=== PATIENT | male | born 1935 | race Caucasian/White ===

== ENCOUNTER 2017-04-14 09:56 | Inpatient (IN) ==
[2017-04-14] MEDS ORDERED: LASIX IV ONE (10:29)
--- NOTE | 2017-04-14 10:34 | EKG Report ---
Test Performed on : 04/14/2017 10:17:13 AM Test Reason : tachy Blood Pressure : / mmHG Vent. Rate : 141 BPM Atrial Rate : 070 BPM P-R Int : 000 ms QRS Dur : 124 ms QT Int : 350 ms P-R-T Axes : 000 -61 203 degrees QTc Int : 536 ms Wide QRS tachycardia. Left axis deviation Nonspecific intraventricular conduction delay ST \T\ T wave abnormality, consider inferolateral ischemia Abnormal ECG When compared with ECG of 24-FEB-2017 23:01, Wide QRS tachycardia. has replaced Sinus rhythm. Vent. rate has increased BY 57 BPM Unconfirmed Result
--- NOTE | 2017-04-14 10:43 | Diag Imaging Result Doc PS360 ---
EXAM: CHEST-PORTABLE HISTORY: sob/cp TECHNIQUE: Erect AP portable at 1026 COMMENT: There is cardiomegaly. There are small pleural effusions as there were on 02/24/2017. There is mild interstitial pulmonary edema which is worse than on the previous study. The mass which was previously demonstrated in the left lower lobe is apparently decreased in size. IMPRESSION: Interstitial pulmonary edema. Electronically signed by Dave Trevino 04/14/2017 10:40 AM
[2017-04-14 10:44] LABS: BASO% 0.4 % (0.0-0.8); EOS# 0.03 X1000 (0.0-0.7); EOS% 0.4 % (0.0-10.0); HEMATOCRIT 37.7 % (42.0-52.0); IMM GRAN# 0.03 X1000 (0.0-0.04); IMM GRAN% 0.4 % (0.0-0.5); LYMPH# 0.37 X1000 (1.2-3.4); LYMPH% 4.9 % (20.5-51.1); MANUAL DIFF NEEDED? NO; MCH 25.1 PG (27-31); MCHC 29.2 g/dL (33-37); MCV 86.1 FL (81-99); MONO# 0.62 X1000 (0.11-0.59); MONO% 8.2 % (1.7-9.3); NEUT% 85.7 % (42.2-75.2); PLT 201 X1000 (130-400); RBC 4.38 XMIL (4.7-6.1)
[2017-04-14 11:09] LABS: INR 1.21 (0.86-1.15); PROTIME 15.6 Seconds (12.1-15.5)
[2017-04-14 11:10] LABS: PTT PL 35.4 Seconds (22.6-43.9)
[2017-04-14 11:11] LABS: ALBUMIN 3.3 g/dL (3.5-5.0); CALCIUM 8.5 mg/dL (8.8-10.2); MAGNESIUM 2.8 mg/dL (1.5-2.7); POTASSIUM 4.7 mmol/L (3.5-5.1); TOTAL BILIRUBIN 0.8 mg/dL (0.20-1.00); TOTAL PROTEIN 8.8 g/dL (6.3-8.3)
[2017-04-14] MEDS ORDERED: TYLENOL PO PRN (12:27)
[2017-04-14] MEDS ORDERED: TORADOL IV PRN (12:27)
[2017-04-14] MEDS ORDERED: ZOFRAN IV PRN (12:27)
--- NOTE | 2017-04-14 12:32 | PROVIDER DOCUMENTATION ---
This chart was entered by Jessee Dunbar Scribleni, acting as scribe for Otto Mark MD. HPI-Respiratory General - General Chief Complaint: Shortness of Breath Stated Complaint: FEET SWELLING/KIDNEY FAILURE STAGE 4 Time Seen by Provider: 04/14/17 10:19 Source: patient, family Allergies/Adverse Reactions: Patient Allergies Allergy/AdvReac Type Severity Reaction Status Date / Time No Known Allergies Allergy Verified 04/14/17 10:05 Home Medications: Home Medication List Medication Instructions Recorded Confirmed Last Taken Type Aspirin/Calcium Carbonate/Mag 325 mg PO DAILY 05/31/13 04/14/17 1 Week Ago History [Aspirin Buffered 325 mg Tab] Nitroglycerin [Nitrostat] 0.4 mg SL PRN PRN 05/31/13 04/14/17 1 Month Ago History [place]-3 Fatty Acids/Fish Oil [Fish 1 each PO DAILY 05/31/13 04/14/17 12/24/16 History Oil 1,000 mg Softgel] PRAVAstatin [Pravachol] 40 mg PO DAILY 05/31/13 04/14/17 12/24/16 History Furosemide [Lasix] 1 tab PO EVERY OTHER DAY 12/25/16 04/14/17 12/24/16 History Albuterol Sulfate [Proair Hfa] 8.5 gm IH Q4-6H PRN PRN #1 02/24/17 04/14/17 Unknown Rx hfa.[email or web address].[email or web address] - History of Present Illness-Resp Nature of Presenting Problem: Patient is a 81 y/o M that presents with his family to the ER with shortness of breath, bilateral lower extremity swelling, and difficulty urinating. Symptoms began yesterday although his shortness of breath is about to his normal( history of COPD and LUNG CA). Denies chest pain, fever/chills, or n/v/d. 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 He just finished radiation for Lung CA 4 weeks ago. Quality of Pain: reports: none Severity in ED: reports: moderate, severe Onset/Duration: reports: unsure, 24 hours ago, 2 days ago Timing: reports: still present, constant Context: denies: recent chemotherapy, recent URI Cough Quality/Degree: reports: no cough Modifying Factors: improves with: nothing Associated Symptoms: reports: shortness of breath, sore throat. denies: cough, fever/chills, hurts to breathe, hyperventilating, nasal congestion, nasal drainage, wheezing Similar Symptoms Previously?: Yes Recently seen or treated by another doctor?: No Review of Systems - Adult - REVIEW OF SYSTEMS - ADULT Constitutional: denies: chills, fever Eyes: reports: no symptoms reported Ears, Nose, Mouth & Throat: reports: no symptoms reported Cardiovascular: reports: edema. denies: chest pain, palpitations, syncope Respiratory: reports: shortness of breath. denies: cough, wheezing Gastrointestinal: denies: abdominal pain, diarrhea, nausea, vomiting Genitourinary: reports: urinary retention. denies: dysuria, hematuria Musculoskeletal: denies: back pain, joint pain, neck pain Integumentary: reports: no symptoms reported Neurological: denies: dizziness/vertigo, headache/migraines, paresthesia, syncope Psychiatric: reports: no symptoms reported Endocrine: reports: no symptoms reported Hematologic/Lymphatic: reports: no symptoms reported Allergic/Immunologic: reports: no symptoms reported All Other Systems: Reviewed and Negative Past History - Adult - PAST MEDICAL HISTORY-ADULT Review of Records: reports: Old Records Reviewed, Nursing Assessment Review, Medications Reviewed Cardiovascular: reports: angina, CAD, HTN Respiratory: reports: COPD, cancer (lung) Genitourinary: reports: kidney disease (Stage IV) - PRIOR SURGERIES/PROCEDURES Surgical/Procedure History: reports: CABG - IMMUNIZATION STATUS Childhood Immunizations: See Nurse Assessment Flu Vaccine: See Nurse Assessment - FAMILY HISTORY Family History: reviewed, not pertinent - SOCIAL HISTORY Smoking: quit greater than 1 year, cigarettes Living Situation: family Physical Exam-General - PHYSICAL EXAM-ADULT Initial Vital Signs Reviewed: Yes - CONSTITUTIONAL General Appearance: alert, mild distress - EYES Eyes: PERRL/EOMI, pink conjunctivae - HEAD, EARS, NOSE, MOUTH & THROAT HENMT: normocephalic/atraumatic, moist mucous membranes, normal ENT inspection - NECK Neck: full range of motion, normal inspection - RESPIRATORY Respiratory: lungs clear, normal breath sounds, no respiratory distress, no accessory muscle use - CARDIOVASCULAR Cardiovascular: no gallop, tachycardia - GASTROINTESTINAL (ABDOMEN) Abdominal Exam: normal bowel sounds, non tender, soft, no organomegaly, no pulsatile mass - MUSCULOSKELETAL Extremity: no calf tenderness, pelvis stable, pedal edema (2 to 3 plus bilaterally lower extremity) - SKIN Integumentary: normal color, warm/dry - NEUROLOGIC Neurologic: grossly normal, no motor/sensory deficits - PSYCHIATRIC Psych/Mental Status: normal mood/affect, normal thought content, normal thought process, oriented x 3 Progress - PLAN OF CARE/RESULTS Progress/Plan/Lab Results: Vital Signs - 8 hr 04/14/17 10:03 Temperature 97.6 F Pulse Rate 140 H Respiratory Rate 24 Blood Pressure 117/83 O2 Sat by Pulse Oximetry 99 Laboratory Results - last 24 hr 04/14/17 04/14/17 04/14/17 10:16 10:16 10:16 WBC RBC Hgb Hct MCV MCH MCHC RDW Std Deviation Plt Count MPV Immature Gran % (Auto) Neut % (Auto) Lymph % (Auto) Foster % (Auto) Eos % (Auto) Baso % (Auto) Immature Gran # (Auto) Neut # (Auto) Lymph # (Auto) Foster # (Auto) Eos # (Auto) Baso # (Auto) PT INR APTT (Factor Assay) Sodium 137 Potassium 4.7 Chloride 96 L Carbon Dioxide 25 Anion Gap 16 BUN 50 H Creatinine 3.9 H Estimated GFR/1.73 m2 15 BUN/Creatinine Ratio 13 Glucose 218 H Calculated Osmolality 294 Calcium 8.5 L Magnesium 2.8 H Total Bilirubin 0.80 AST 173 H ALT 104 H Alkaline Phosphatase 188 H Creatine Kinase 34 Troponin T 0.216 H [id number]-[id number] Pept > 54482 H Total Protein 8.8 H Albumin 3.3 L Globulin 6.0 Albumin/Globulin Ratio 1.0 04/14/17 04/14/17 10:16 10:16 WBC 7.54 RBC 4.38 L Hgb 11.0 L Hct 37.7 L MCV 86.1 MCH 25.1 L MCHC 29.2 L RDW Std Deviation 17.1 H Plt Count 201 MPV 10.0 Immature Gran % (Auto) 0.4 Neut % (Auto) 85.7 H Lymph % (Auto) 4.9 L Foster % (Auto) 8.2 Eos % (Auto) 0.4 Baso % (Auto) 0.4 Immature Gran # (Auto) 0.03 Neut # (Auto) 6.46 Lymph # (Auto) 0.37 L Foster # (Auto) 0.62 H Eos # (Auto) 0.03 Baso # (Auto) 0.03 PT 15.6 H INR 1.21 H APTT (Factor Assay) 35.4 Sodium Potassium Chloride Carbon Dioxide Anion Gap BUN Creatinine Estimated GFR/1.73 m2 BUN/Creatinine Ratio Glucose Calculated Osmolality Calcium Magnesium Total Bilirubin AST ALT Alkaline Phosphatase Creatine Kinase Troponin T Plf-V-Iiesqumbgoe Pept Total Protein Albumin Globulin Albumin/Globulin Ratio Orders Category Date Time Status Cardiac Monitoring DIRECTED Care 04/14/17 10:27 Active Rosas Cath Insertion ORDERED Care 04/14/17 10:30 Active Oxygen Therapy- ED Nursing DIRECTED Care 04/14/17 10:27 Active Post Void Residual DIRECTED Care 04/14/17 10:30 Active Saline Loc NOW Care 04/14/17 10:27 Active CHEST-PORTABLE [RAD] Stat Exams 04/14/17 10:29 Completed CBC WITH ELECTRONIC DIFF [HEME] Stat Lab 04/14/17 10:16 Completed CK PROFILE [SP CHEM] Stat Lab 04/14/17 10:16 Completed COMPREHENSIVE METABOLIC PANEL [CHEM] Stat Lab 04/14/17 10:16 Completed MAGNESIUM [CHEM] Stat Lab 04/14/17 10:16 Completed PRO B-NATRIURETIC PEPTIDE Stat Lab 04/14/17 10:16 Completed [address]IME WITH INR PL [COAG] Stat Lab 04/14/17 10:[address] [COAG] Stat Lab 04/14/17 10:16 Completed TROPONIN T Stat Lab 04/14/17 10:16 Completed Furosemide [Lasix] Med 04/14/17 10:29 Discontinued 40 mg IV NOW ONE EKG [EKG] Stat Ther 04/14/17 10:08 Draft EKG [EKG] Stat Ther 04/14/17 10:27 Ordered Result Diagrams: 04/14/17 10:16 04/14/17 10:16 - EKG 1 Time of EKG reading by physician:: 10:18 EKG Read and Signed by:: Otto Mark EKG Interpretation (*Must complete 3 of following elements*): Abnormal Rate: 141 Rhythm: Wide QRS tachycardia Bath: left ST Wave: non-specific ST changes - XRAY 1 XRAY Study: Chest Impression: Abnormal XRAY Interpretation: interstitial pulmonary edema - CONSULTS/PCP/HOSPITALIST Notification #1 *Consult/PCP/Hospitalist*: consumer advocate for hospitalist Time Discussed: 12:25 Consult Disposition: Admit Departure - Departure Date of Disposition Decision: 04/14/17 Time of Disposition Decision: 12:28 DIAGNOSIS: Heart failure, CKD (chronic kidney disease), Dyspnea Disposition: ADMITTED INPATIENT 09 Certified Medical Emergency: Emergent Condition: Stable Referrals and Follow-Ups: Shamar Doan MD [Primary Care Provider] - - Critical Care Note This patient required my direct & personal management of CC.: No This chart was documented by the indicated scribe, (Jessee Dunbar, Scribe) and accurately reflects the services I performed and decisions made by me, Otto Mark MD, as attested by the provider's signature.
[2017-04-14] MEDS ORDERED: CARDIZEM IV ONE (14:24)
[2017-04-14] MEDS ORDERED: NITROGLYCERIN SL PRN (14:25)
--- NOTE | 2017-04-14 17:27 | HISTORY AND PHYSICAL ---
PRIMARY CARE PHYSICIAN: Dr. Shamar Doan. CHIEF COMPLAINT: Increased shortness of breath that has progressively worsened over the past couple of days and bilateral lower extremity edema. HISTORY OF PRESENTING ILLNESS: This is an 81-year-old male who presented to [facility] ER with complaints of increased shortness of breath and bilateral lower extremity edema that has progressively worsened over the past several days. On arrival to the emergency room. He was noted to have a BUN of 50 with a creatinine of 3.9, with known chronic kidney disease stage 4 without dialysis. He had a magnesium of 2.8. His liver enzymes are elevated with an AST of 173, ALT 104, alkaline phosphatase of 188. He had a troponin of 0.216. I think that is most likely elevated due to his kidney function as he denies any chest pain, but he does have a proBNP of greater than 35,000. Chest x-ray showed interstitial pulmonary edema. He had an EKG that showed 141 rate with a wide QRS tachycardia. He continues to remain tachycardic at 143-148 currently, is saturating 100% on 2 L via nasal cannula and is being admitted to the medical unit for further evaluation and treatment. PAST MEDICAL HISTORY: Lung cancer, finished his last radiation with Dr. Alvarenga 4 weeks ago, coronary artery disease, ischemic cardiomyopathy, hypertension, dyslipidemia, chronic kidney disease stage 4 and COPD. PAST SURGICAL HISTORY: CABG. FAMILY HISTORY: Noncontributory. SOCIAL HISTORY: Currently lives with family. Denies any tobacco use stating he quit 6 years ago and denies any alcohol or illicit drug use. ALLERGIES: He does not have any allergies. HOME MEDICATIONS: We will hold his Lasix 40 mg 1 p.o. every other day. We will continue his ProAir 1 inhalation q.4-6 hours p.r.n., a buffered aspirin 325 mg p.o. daily, Nitrostat 0.4 mg sublingually p.r.n., fish oil 1000 mg p.o. daily and Pravachol 40 mg p.o. daily. LABORATORY DATA: Showed a white blood cell count of 7.54, hemoglobin of 11, hematocrit 37.7, platelets 201,000. PT and INR of 15.6 and 1.21. A sodium of 137, potassium 4.7, chloride 96, CO2 25, BUN of 50, creatinine 3.9, glucose 218, magnesium 2.8, AST of 173, ALT 104, alkaline phosphatase 188. Troponin 0.216. ProBNP of greater than 35,000. EKG with a wide QRS tachycardia at 141. Chest x-ray showed interstitial pulmonary edema. REVIEW OF SYSTEMS: He denied any fever, chills, blurred vision, dizziness, chest pain. Mild cough, nonproductive, shortness of breath. Denied any abdominal pain, constipation, diarrhea, burning or hurting with urination and is positive for lower extremity swelling. PHYSICAL EXAMINATION: VITAL SIGNS: On arrival he had a temperature of 97.6 degrees, a pulse of 140, respirations 24, blood pressure 117/83, saturating 99% on 2 L via nasal cannula. GENERAL: This is an 81-year-old male who is lying in the bed and answers questions appropriately. HEENT: Normocephalic and atraumatic. Pupils are equal, round, and reactive to light. Extraocular movements are intact. Oropharynx and nares are clear. NECK: Supple. LUNGS: Clear to auscultation with equal lung expansion and chest wall movement. O2 via nasal cannula currently in use. HEART: With an irregular rate and rhythm. Tachycardia in low 140s to 148. No murmurs, rubs or gallops. ABDOMEN: Soft, nontender, nondistended. Bowel sounds are present x4 quadrants. EXTREMITIES: No clubbing or cyanosis. He is noted to have 2 to 3+ bilateral lower extremity edema. NEUROLOGICAL: The cranial nerves 2-12 are grossly intact. ASSESSMENT: 1. An acute congestive heart failure exacerbation. 2. Tachycardia. 3. Elevated liver function tests. 4. Chronic kidney disease stage 4. PLAN: He has been admitted to the medical unit. Placed on telemetry. Rosas catheter indwelling placed. Healthy heart diet. We are going to give him a 10 mg IV Cardizem x1 now. If this does not bring his heart rate down then will have to look at putting him in the unit on a Cardizem drip to get his heart rate less than 100. Once his heart rate is normalized will obtain an echocardiogram in the a.m. We will do serial cardiac enzymes today x3 sets and a CBC, CMP in the a.m. Continue home medications as previously identified and place on Lasix 40 mg IV q.12 and daily weights. The patient is a full code. Dictated by EN Lake for Tr Crystal MD cc: MD Tr Jon MD
[2017-04-14] MEDS: CARDIZEM 100 MG/NS 100 MG/100 ML IVPB IV SCH ×2 (17:53→22:33)
[2017-04-14 21:29] LABS: URINE SOURCE CATH
[2017-04-14] MEDS: PRAVACHOL PO SCH (21:31)
[2017-04-14 21:34] LABS: BILIRUBIN URINE NEGATIVE (NEGATIVE); BLOOD URINE 4+ (NEGATIVE); CLARITY VERY CLOUDY (CLEAR); COLOR RED; LEUKOCYTES URINE 2+ (NEGATIVE); NITRITE URINE NEGATIVE (NEGATIVE); PROTEIN URINE 2+(100 mg/dL) mg/dL (NEGATIVE); SP GRAVITY URINE 1.015; URINE MICROSCOPIC NEEDED? YES; UROBILINOGEN URINE NORMAL
[2017-04-14 21:50] LABS: URINE EPITHELIAL CELLS <10 /HPF (<10); URINE RBC TNTC /HPF (<10)
[2017-04-14] MEDS ORDERED: LASIX IV SCH (22:30)
--- NOTE | 2017-04-15 05:06 | EKG Report ---
Test Performed on : 04/14/2017 6:27:56 PM Test Reason : rhythm change/afib Blood Pressure : / mmHG Vent. Rate : 100 BPM Atrial Rate : 100 BPM P-R Int : 000 ms QRS Dur : 106 ms QT Int : 326 ms P-R-T Axes : 000 -45 216 degrees QTc Int : 420 ms Undetermined rhythm ramandeep Left axis deviation ST \T\ T wave abnormality, consider inferolateral ischemia Abnormal ECG When compared with ECG of 14-APR-2017 10:17, (Unconfirmed) Current undetermined rhythm precludes rhythm comparison, needs review Confirmed by Larry Brothers MD ([id number]) on 05/12/2017 6:44:08 PM
--- NOTE | 2017-04-15 05:07 | EKG Report ---
Test Performed on : 04/15/2017 02:58:24 AM Test Reason : CHEST PAIN Blood Pressure : / mmHG Vent. Rate : 128 BPM Atrial Rate : 293 BPM P-R Int : 000 ms QRS Dur : 110 ms QT Int : 320 ms P-R-T Axes : -78 -52 188 degrees QTc Int : 467 ms Atrial flutter. with variable AV block. Left anterior fascicular block Marked ST abnormality, possible inferior subendocardial injury Abnormal ECG When compared with ECG of 14-APR-2017 18:27, (Unconfirmed) Previous ECG has undetermined rhythm, needs review ST now depressed in Inferior leads Confirmed by Larry Brothers MD ([id number]) on 05/12/2017 6:43:25 PM
[2017-04-15] MEDS: CARDIZEM 100 MG/NS 100 MG/100 ML IVPB IV SCH ×2 (06:28→20:30)
[2017-04-15 06:46] LABS: MANUAL DIFF NEEDED? NO
[2017-04-15 07:09] LABS: BASO% 0.2 % (0.0-0.8); EOS# 0.03 X1000 (0.0-0.7); EOS% 0.3 % (0.0-10.0); HEMATOCRIT 35.2 % (42.0-52.0); HEMOGLOBIN 10.5 g/dL (14.0-18.0); IMM GRAN# 0.04 X1000 (0.0-0.04); IMM GRAN% 0.4 % (0.0-0.5); LYMPH# 0.49 X1000 (1.2-3.4); LYMPH% 4.3 % (20.5-51.1); MCH 24.8 PG (27-31); MCHC 29.8 g/dL (33-37); MCV 83.2 FL (81-99); MONO# 1.21 X1000 (0.11-0.59); MONO% 10.6 % (1.7-9.3); MPV 10.3 FL (7.4-10.4); NEUT% 84.2 % (42.2-75.2); PLT 196 X1000 (130-400); RBC 4.23 XMIL (4.7-6.1)
[2017-04-15 07:53] LABS: ALBUMIN 2.8 g/dL (3.5-5.0); CALCIUM 8.4 mg/dL (8.8-10.2); POTASSIUM 5.3 mmol/L (3.5-5.1); TOTAL BILIRUBIN 1.2 mg/dL (0.20-1.00); TOTAL PROTEIN 8.3 g/dL (6.3-8.3)
[2017-04-15] MEDS: VENTOLIN HFA INH PRN ×2 (08:24→19:25)
[2017-04-15] MEDS: ROCEPHIN 1 GM/NS 1 GM/50 ML IVPB IV SCH (08:27)
[2017-04-15] MEDS: FISH OIL CONCENTRATE PO SCH (08:27)
[2017-04-15] MEDS: ASPIRIN EC PO SCH (08:27)
--- NOTE | 2017-04-15 08:43 | PROGRESS NOTE ---
DATE: 04/15/2017 SUBJECTIVE: The patient notes that he is breathing a little bit easier. Denies any chest pain or palpitations. Denies any fevers or chills. PHYSICAL EXAMINATION: Vital Signs: Temperature 97, pulse 82, respiratory rate 28, BP 97/67, saturation is 94% on 2 L. General: The patient is awake and alert. He is currently in no respiratory distress. He is much improved. HEENT: Normocephalic. Neck: Supple. CV: Rate controlled. Heart rate was 150s last night on a Cardizem drip at 20. Currently, he is rate controlled on 10 of Cardizem with a rate of 82. Chest: Clear. Abdomen: Soft. Extremities: Moves all extremities. Neurologic: No changes. LABS: Hemoglobin and hematocrit 10 and 30. Potassium 5.3, BUN 58, creatinine 4.4, glucose 152. AST 582, ALT 410, albumin 2.8. ASSESSMENT: 1. Atrial fibrillation with rapid ventricular response, improved. 2. Acute pulmonary edema secondary to atrial fibrillation. The patient has no previous history of congestive heart failure. We will check an echocardiogram. 3. Acute on chronic renal failure. Creatinine continues to climb slightly. His baseline is 2.8. He is currently at 4.4. 4. Acute hepatitis, likely secondary to liver congestion. His ALT and AST have risen. 5. Moderate protein calorie malnutrition. PLAN: We will check an echocardiogram. We will consult Cardiology. Recheck his labs in the a.m. We will stop his Lasix currently as he appears to be volume depleted. We will discuss this with Cardiology. Further orders as needed. cc: Tr Crystal MD
--- NOTE | 2017-04-15 15:25 | ECHO REPORT ---
ORDER DATE: 04/15/2017 INDICATION: CHF exacerbation. FINDINGS: 1. The right atrium is likely severely enlarged with a dimension of 5.6 cm. 2. Mild tricuspid regurgitation. RV systolic pressure of 56 suggesting pulmonary hypertension. 3. The right ventricle was enlarged with at least moderate reduction in RV systolic function. 4. Trace pulmonic insufficiency. 5. Likely severe left atrial enlargement with a dimension of 5.2 cm. 6. No mitral prolapse. There appears to be apical tenting of the mitral leaflets. There is a moderate to severe mitral regurgitation. 7. Left ventricle was dilated with a dimension of 6.6 cm. Mild left ventricular hypertrophy with a posterior and interventricular septal wall thickness of 1.2 cm each. Severe reduction in LV systolic function with an estimated EF of 15%. There is no clear evidence of LV thrombus. 8. Aortic valve opens well. Does appear to be somewhat sclerotic. There is mild aortic insufficiency. 9. Aorta appears normal in visualized segments. 10. No pericardial effusion seen. cc: MD Alejandra Nava CRNP
[2017-04-15] MEDS ORDERED: NITROGLYCERIN TOP SCH (16:00)
[2017-04-15] MEDS ORDERED: LASIX IV SCH (16:00)
[2017-04-15] MEDS: ZOFRAN IV PRN (16:17)
[2017-04-15] MEDS: APRESOLINE PO SCH (16:17)
[2017-04-15] MEDS: LOVENOX SUBQ SCH (16:17)
--- NOTE | 2017-04-15 16:26 | CONSULTATION ---
DATE OF CONSULTATION: 04/15/2017 IMPRESSION: 1. Acute on chronic biventricular congestive heart failure with significant right-sided congestive heart failure component and associated deterioration of renal function due to lower cardiac output as well as evidence of hepatic congestion. 2. Severe ischemic cardiomyopathy. 3. Moderate to severe mitral regurgitation. 4. Atrial flutter, duration not known. 5. Atherosclerotic coronary disease with history of previous coronary bypass grafting six years ago at [facility] by Dr. Campoverde. 6. Non-small cell lung cancer left lower lobe. Patient is status post radiation therapy. 7. Significant chronic obstructive pulmonary disease. 8. Acute on chronic renal dysfunction. RECOMMENDATIONS: 1. Continue intravenous diltiazem for initial measure for heart rate control. 2. Add low-dose beta georgette and increase as tolerated. 3. Consider transition to oral Cardizem. 4. Diurese with intravenous Lasix. This should help his right ventricular performance as her diureses and in turn probably will improve renal perfusion. 5. Add hydralazine and increase as tolerated. 6. Add nitrates. 7. Cautious administration of Lovenox given significant renal dysfunction. HISTORY: This 81-year-old, white male, with past history of chronic systolic heart failure, ischemic cardiomyopathy, COPD, non-small cell lung cancer, and chronic kidney disease was admitted with progressive dyspnea symptoms and significant edema. He has had progressive dyspnea symptoms for several months. More recently, he has had progression to experiencing orthopnea and then significant edema. He has had very little chest discomfort which he characterizes as a chest tightness. Episodes have been very brief and limited. He denies any palpitations. There has been no syncope. He was admitted to telemetry and initial efforts were made to diurese him because of congestive heart failure evident. His renal function was impaired and appeared to be deteriorating. He also had atrial flutter and rate control became difficult prompting initiation of intravenous diltiazem and transfer to the intensive care unit. He had a stress myocardial perfusion study this past January which showed a fixed defect in the mid to distal anterior wall, and apex and left ventricular ejection fraction of 30%. PAST MEDICAL HISTORY: 1. Atherosclerotic coronary disease with history of previous coronary bypass grafting 6 years ago. He has ischemic cardiomyopathy. More recently, diagnosed with left ejection fraction 30% by Nuclear Medicine study with fixed defect in the mid to apical anterior wall and apex consistent with infarction. 2. Significant chronic obstructive pulmonary disease. 3. Denies hypertension, diabetes mellitus and hypercholesterolemia. 4. Non-small cell lung cancer in the left lower lobe. Patient is status post radiation therapy to this region early this year. PAST SURGICAL HISTORY: Also includes bilateral cataract procedure. MEDICATIONS: Prior to admission as listed. ALLERGIES: He has known no known allergies. SOCIAL HISTORY: He is and has lived in [place] for more than 40 years. 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 After moving back here more than 40 years ago he worked in construction and installation of insulation. He smoked 1 pack of cigarettes per day for well over 40 years but no longer smokes cigarettes. He does not currently drink any alcoholic beverages. FAMILY HISTORY: Negative for premature coronary disease. REVIEW OF SYSTEMS: Pulmonary: Noteworthy for dyspnea as well as cough. There has been no purulent sputum. Gastrointestinal: Negative. Constitutional: Negative. Remainder of the review of systems negative/noncontributory with 14 total systems reviewed. PHYSICAL EXAMINATION: General: This is a pleasant, thin elderly white male in no distress. Heart rate 100 and irregular with ECG monitor showing atrial flutter. Blood pressure 125/80. HEENT: Extraocular movements appear intact. Mucous membranes are moist. Neck: Supple. Jugular distention is evident consistent with central venous pressure of 12 cm. waves can be appreciated. There are no carotid bruits. Chest: Auscultation of the chest reveals a few bibasilar inspiratory crackles. Cardiac Exam: Reveals an irregular rate and rhythm without appreciable murmur or gallop. Abdomen: Soft, nontender. Extremities: Demonstrate 2+ to 3+ low pretibial to ankle edema. Neurologic Exam: Reveals him to be alert, fully oriented. Speech is fluent. Moves all 4 extremities equally well. Skin: Warm dry. Psychiatric: Reveals mood to be appropriate. DIAGNOSTIC DATA: ECG demonstrates atrial flutter with variable AV block, left anterior fascicular block and ST abnormality, consider lateral ischemia. cc: Bradley Wong MD
[2017-04-15] MEDS ORDERED: LASIX IV ONE ×2 (19:05→20:56)
[2017-04-15] MEDS: PRAVACHOL PO SCH (20:30)
[2017-04-15] MEDS: LOPRESSOR PO SCH (20:30)
[2017-04-15] MEDS ORDERED: LASIX ONE (23:23)
[2017-04-15] MEDS: LEVOPHED 8 MG in D5 1/2 NS 250 ML IV SCH (23:35)
[2017-04-16] MEDS ORDERED: LASIX IV SCH (04:00)
--- NOTE | 2017-04-16 05:48 | EKG Report ---
Test Performed on : 04/16/2017 05:35:17 AM Test Reason : afib protocol Blood Pressure : / mmHG Vent. Rate : 096 BPM Atrial Rate : 234 BPM P-R Int : 000 ms QRS Dur : 134 ms QT Int : 440 ms P-R-T Axes : 000 -62 106 degrees QTc Int : 555 ms Atrial flutter. with variable AV block. with premature ventricular or aberrantly conducted complexes . Left axis deviation Left bundle branch block Abnormal ECG When compared with ECG of 15-APR-2017 02:58, (Unconfirmed) Left bundle branch block is now present Confirmed by Larry Brothers MD ([id number]) on 05/12/2017 6:42:58 PM
[2017-04-16 06:59] LABS: ALBUMIN 2.8 g/dL (3.5-5.0); CALCIUM 7.8 mg/dL (8.8-10.2); MAGNESIUM 3.2 mg/dL (1.5-2.7); POTASSIUM 5.3 mmol/L (3.5-5.1); TOTAL BILIRUBIN 1.2 mg/dL (0.20-1.00); TOTAL PROTEIN 8.3 g/dL (6.3-8.3)
[2017-04-16] MEDS: VENTOLIN HFA INH PRN ×2 (07:05→21:01)
[2017-04-16 07:11] LABS: HEMATOCRIT 34.9 % (42.0-52.0); HEMOGLOBIN 10.6 g/dL (14.0-18.0); MCH 25.3 PG (27-31); MCHC 30.4 g/dL (33-37); MCV 83.3 FL (81-99); MPV 10.8 FL (7.4-10.4); RBC 4.19 XMIL (4.7-6.1)
--- NOTE | 2017-04-16 08:06 | EKG Report ---
Test Performed on : 04/16/2017 07:02:50 AM Test Reason : rhythm change Blood Pressure : / mmHG Vent. Rate : 063 BPM Atrial Rate : 063 BPM P-R Int : 178 ms QRS Dur : 122 ms QT Int : 490 ms P-R-T Axes : 043 -56 205 degrees QTc Int : 501 ms Sinus rhythm. with premature atrial complexes. Possible Left atrial enlargement Left bundle branch block Abnormal ECG When compared with ECG of 16-APR-2017 05:35, (Unconfirmed) Sinus rhythm. has replaced Atrial flutter. Vent. rate has decreased BY 33 BPM T wave inversion more evident in Inferior leads T wave inversion now evident in Anterior leads Confirmed by Larry Brothers MD ([id number]) on 05/12/2017 6:42:51 PM
--- NOTE | 2017-04-16 08:13 | Diag Imaging Result Doc PS360 ---
CHEST-PORTABLE - 04/16/2017 INDICATION: HYPOXIA TECHNIQUE: COMPARISON: 04/14/2017 FINDINGS: Stable surgical changes to the heart. Stable significant cardiomegaly and pulmonary vascular congestion. There may be mild interstitial pulmonary edema as well. Stable patchy infiltrates in the midlungs bilaterally. There are probably small pleural effusions stable from prior. IMPRESSION: No change from prior. Electronically signed by Osvaldo Wynn 04/16/2017 8:11 AM
[2017-04-16] MEDS: ROCEPHIN 1 GM/NS 1 GM/50 ML IVPB IV SCH (08:47)
[2017-04-16] MEDS: ASPIRIN EC PO SCH (08:47)
[2017-04-16] MEDS: FISH OIL CONCENTRATE PO SCH (08:47)
[2017-04-16] MEDS: APRESOLINE PO SCH ×3 (08:57→17:26)
[2017-04-16] MEDS: LOPRESSOR PO SCH (08:57)
[2017-04-16] MEDS: ZOFRAN IV PRN (12:36)
[2017-04-16] MEDS: LEVOPHED 8 MG in D5 1/2 NS 250 ML IV SCH (15:12)
[2017-04-16] MEDS: DOBUTAMINE 250 MG/D5W 250 MG/250 ML IV.SOLN IV SCH (17:25)
[2017-04-16] MEDS: LOVENOX SUBQ SCH (17:26)
[2017-04-16] MEDS: DOPAMINE 800 MG/D5W (PARKWAY ONLY!) 800 MG/250 ML IV.SOLN IV SCH (17:26)
[2017-04-17] MEDS: VENTOLIN HFA INH PRN ×2 (02:08→19:49)
[2017-04-17] MEDS: DOBUTAMINE 250 MG/D5W 250 MG/250 ML IV.SOLN IV SCH ×3 (02:22→22:55)
--- NOTE | 2017-04-17 05:06 | EKG Report ---
Test Performed on : 04/17/2017 04:58:59 AM Test Reason : afib protocol Blood Pressure : / mmHG Vent. Rate : 077 BPM Atrial Rate : 077 BPM P-R Int : 172 ms QRS Dur : 114 ms QT Int : 442 ms P-R-T Axes : 037 -50 209 degrees QTc Int : 500 ms Poor data quality, interpretation may be adversely affected Normal sinus rhythm. Left anterior fascicular block ST \T\ T wave abnormality, consider lateral ischemia Prolonged QT Abnormal ECG When compared with ECG of 16-APR-2017 07:02, (Unconfirmed) premature atrial complexes. are no longer present Left bundle branch block is no longer present T wave inversion no longer evident in Anterior leads Unconfirmed Result
[2017-04-17 06:39] LABS: HEMATOCRIT 33.6 % (42.0-52.0); HEMOGLOBIN 10.2 g/dL (14.0-18.0); MCH 24.9 PG (27-31); MCHC 30.4 g/dL (33-37); MCV 82.2 FL (81-99); RBC 4.09 XMIL (4.7-6.1)
[2017-04-17 06:55] LABS: ALBUMIN 2.6 g/dL (3.5-5.0); CALCIUM 7.1 mg/dL (8.8-10.2); MAGNESIUM 3.1 mg/dL (1.5-2.7); POTASSIUM 4.8 mmol/L (3.5-5.1); TOTAL BILIRUBIN 0.8 mg/dL (0.20-1.00); TOTAL PROTEIN 7.7 g/dL (6.3-8.3)
[2017-04-17] MEDS: APRESOLINE PO SCH ×3 (08:12→15:59)
[2017-04-17] MEDS: ROCEPHIN 1 GM/NS 1 GM/50 ML IVPB IV SCH (08:29)
[2017-04-17] MEDS: ASPIRIN EC PO SCH (08:29)
[2017-04-17] MEDS: FISH OIL CONCENTRATE PO SCH (08:29)
[2017-04-17] MEDS: ZOFRAN IV PRN ×3 (08:29→22:55)
[2017-04-17] MEDS ORDERED: SAMSCA PO ONE (13:13)
--- NOTE | 2017-04-17 13:32 | PROGRESS NOTE ---
DATE: 04/17/2017 SUBJECTIVE: Mr. Srivastava is somewhat weak. He is able to respond to questions and answer appropriately and he has no complaints presently. PHYSICAL EXAMINATION: He is afebrile. Heart rate of 82. His systolic blood pressures seemed to be predominantly in the 80s to 90s. His I's and O's over the last 24 hours seem to be positive around 800 mL. General: He is in no acute distress. Cardiovascular: He is in a regular rate and rhythm. No murmurs. He has 1+ lower extremity edema with mildly cool distal extremities. He has no increased work of breathing. Abdomen: Soft, nontender, nondistended. No obvious organomegaly. Notably his JVP does appear to be elevated up to the angle of the jaw at a roughly 45 degree head elevation. PERTINENT DATA: His white count is 10, his hematocrit is 33.6. His platelet count is 158,000. Sodium is 130, potassium 4.8, BUN 97, creatinine 6.2. His proBNP yesterday was greater than 35,000. His AST and ALT seemed to be improved. ASSESSMENT: 1. Cardiogenic shock. 2. Recent history of lung cancer diagnosis. PLAN: Patient was initiated on dobutamine on the 7th as well as dopamine. He seems to be producing more urine lately. What I would proceed with at this point is initiating Samsca at a dose of 15 mg today and potentially giving another dose tomorrow. We will check a basic metabolic panel in the morning. We may need to consider backing off the dose of the Lovenox considering his significant renal impairment. cc: Michael Gibbs MD
[2017-04-17] MEDS: LOVENOX SUBQ SCH (16:40)
--- NOTE | 2017-04-17 19:14 | PROGRESS NOTE ---
DATE: 04/17/2017 SUBJECTIVE: The patient denies any complaints today. OBJECTIVE: Vital signs: Temperature 97.6, pulse 64, respiratory 20, BP 105/60, saturation 95% on 3 L. General: Patient is awake. He is in current mild respiratory distress. He is pleasant to talk with, although he really has no desire to answer questions and he makes that known. HEENT: Normocephalic, atraumatic. Neck: Supple. CV: Positive murmur. Chest: Decreased breath sounds. Positive crackles throughout. Abdomen: Soft. Extremities: Positive edema. Neurologic: No changes. Skin: Warm and dry. No rashes. DIAGNOSTIC DATA: WBC is 14, hemoglobin and hematocrit 10 and 30. Sodium 135, potassium 5.3, BUN 75, creatinine 5.5, calcium 7.8, magnesium 3.2, total bilirubin 1.2. AST 1,380, ALT 1,196, alkaline phosphatase 210. BNP greater than 35,000. Albumin 2.8. ASSESSMENT: 1. Moderate protein calorie malnutrition. 2. Acute shock liver. 3. Acute on chronic renal failure. 4. Hyperkalemia. 5. Hyponatremia. 6. Acute leukocytosis. 7. Cardiogenic shock. 8. Acute congestive heart failure with exacerbation. 9. Tachycardia. 10. Recent history of lung cancer. PLAN: We appreciate cardiology input. Patient unfortunately is incredibly ill and certainly may not survive this hospitalization. Discussed with family his current illness and his current situation. We will attempt to find the rest of the family and again DNR and comfort care discussion. We will continue to follow. TIME SPENT: 45 minutes were spent in current care. cc: Tr Crystal MD
--- NOTE | 2017-04-17 19:14 | PROGRESS NOTE ---
DATE: 04/16/2017 SUBJECTIVE: 35 minute discussion was spent with the family regarding DNR, hospice, comfort care. Discussed with the family how sick he is and it is very likely that he will not survive. Discussed that he is in hepatorenal failure with severe cardiogenic shock. He currently is on dopamine and dobutamine per Cardiology. His blood pressure have started running low. We will continue to follow. They agree with DNR. We will continue current course. cc: Tr Crystal MD
--- NOTE | 2017-04-17 19:48 | PROGRESS NOTE ---
DATE: 04/17/2017 SUBJECTIVE: The patient states he is feeling better. He denies any chest pain. PHYSICAL EXAMINATION: Vital Signs: Temperature 97.6, pulse 76, respiratory 24, BP 85/48 to 94/49, saturation 98% on 5 L. General: Patient is awake, alert. He is currently in mild respiratory distress. He is pleasant to talk with. He denies any complaints. HEENT: Normocephalic, atraumatic. Neck: Supple. Cardiovascular: Positive murmur. Otherwise clear. Regular rate and rhythm. Chest: Decreased breath sounds but appears equal bilaterally. No apparent crackles. Extremities: Moves all extremities. He has 1+ lower extremity edema. Abdomen: Soft, nondistended. ASSESSMENT: 1. Cardiogenic shock. 2. Leukocytosis improved. His white count is down to 10. 3. Hyponatremia. 4. Acute hyperkalemia improved. Potassium down to 4.8. 5. Acute on chronic renal failure. Creatinine and BUN continue to climb, currently 97 and 6.2. 6. Diabetes with hyperglycemia. Blood sugar is stable at 137. 7. Hypocalcemia corrects out to normal. 8. Hypermagnesemia. 9. Acute shock liver. AST is actually improved slightly down to 633 from yesterday's 1380. 10. Moderate protein calorie malnutrition. 11. Do Not Resuscitate. 12. Atrial fibrillation currently in sinus. 13. Severe atherosclerotic disease. 14. Qlg-mfsyv-ntry lung cancer in the left lower lobe. PLAN: We will continue current treatment. Patient's blood pressures have started to remain low. His oxygen is dropping but he currently is stable. Hopefully patient will improve. He has actually had a small urine output which is a tremendous improvement from yesterday's examination. Hopefully he will continue to improve. We will follow. Further orders as needed. TIME SPENT: 40 minutes was spent in total care. cc: Tr Crystal MD
--- NOTE | 2017-04-18 06:11 | EKG Report ---
Test Performed on : 04/18/2017 06:05:36 AM Test Reason : afib protocol Blood Pressure : / mmHG Vent. Rate : 082 BPM Atrial Rate : 082 BPM P-R Int : 158 ms QRS Dur : 110 ms QT Int : 422 ms P-R-T Axes : 058 -36 221 degrees QTc Int : 493 ms Normal sinus rhythm. Possible Left atrial enlargement Left axis deviation ST \T\ T wave abnormality, consider inferior ischemia ST \T\ T wave abnormality, consider anterolateral ischemia Prolonged QT Abnormal ECG When compared with ECG of 17-APR-2017 04:58, ST now depressed in Anterior leads Confirmed by Larry Brothers MD ([id number]) on 05/12/2017 6:41:17 PM
[2017-04-18] MEDS: FISH OIL CONCENTRATE PO SCH (08:01)
[2017-04-18] MEDS: ASPIRIN EC PO SCH (08:01)
[2017-04-18] MEDS: APRESOLINE PO SCH ×3 (08:01→16:08)
[2017-04-18] MEDS: ROCEPHIN 1 GM/NS 1 GM/50 ML IVPB IV SCH (08:02)
[2017-04-18] MEDS: DOPAMINE 800 MG/D5W (PARKWAY ONLY!) 800 MG/250 ML IV.SOLN IV SCH (08:02)
[2017-04-18] MEDS: DOBUTAMINE 250 MG/D5W 250 MG/250 ML IV.SOLN IV SCH ×2 (08:02→18:53)
[2017-04-18] MEDS: ZOFRAN IV PRN (08:02)
[2017-04-18 08:22] LABS: BASO% 0.1 % (0.0-0.8); EOS# 0.05 X1000 (0.0-0.7); EOS% 0.6 % (0.0-10.0); HEMATOCRIT 32.5 % (42.0-52.0); HEMOGLOBIN 10.1 g/dL (14.0-18.0); IMM GRAN# 0.04 X1000 (0.0-0.04); IMM GRAN% 0.5 % (0.0-0.5); LYMPH# 0.39 X1000 (1.2-3.4); LYMPH% 4.5 % (20.5-51.1); MANUAL DIFF NEEDED? YES; MCH 24.6 PG (27-31); MCHC 31.1 g/dL (33-37); MCV 79.1 FL (81-99); MONO# 0.77 X1000 (0.11-0.59); MONO% 8.9 % (1.7-9.3); MPV 10.6 FL (7.4-10.4); NEUT% 85.4 % (42.2-75.2); PLT 112 X1000 (130-400); RBC 4.11 XMIL (4.7-6.1)
[2017-04-18 08:46] LABS: EOS 4 % (1-10); LYMPHS 10 % (21-51); MONO 6 % (1-9)
[2017-04-18 08:50] LABS: ALBUMIN 2.5 g/dL (3.5-5.0); MAGNESIUM 2.9 mg/dL (1.5-2.7); POTASSIUM 4.9 mmol/L (3.5-5.1); TOTAL BILIRUBIN 0.6 mg/dL (0.20-1.00); TOTAL PROTEIN 7.8 g/dL (6.3-8.3)
[2017-04-18] MEDS ORDERED: CALCIUM GLUCONATE 1 GM in NS 50 ML IV ONE (11:43)
[2017-04-18] MEDS: LOVENOX SUBQ SCH (15:13)
[2017-04-18] MEDS: VENTOLIN HFA INH PRN (16:12)
[2017-04-18] MEDS ORDERED: MORPHINE IV PRN (20:05)
[2017-04-19] MEDS: ATIVAN IV PRN ×2 (04:00→09:41)
[2017-04-19 05:30] LABS: EOS# 0.03 X1000 (0.0-0.7); EOS% 0.3 % (0.0-10.0); HEMATOCRIT 32.4 % (42.0-52.0); HEMOGLOBIN 10.2 g/dL (14.0-18.0); IMM GRAN# 0.02 X1000 (0.0-0.04); IMM GRAN% 0.2 % (0.0-0.5); LYMPH# 0.33 X1000 (1.2-3.4); LYMPH% 3.7 % (20.5-51.1); MANUAL DIFF NEEDED? YES; MCH 24.9 PG (27-31); MCHC 31.5 g/dL (33-37); MONO# 0.87 X1000 (0.11-0.59); MONO% 9.7 % (1.7-9.3); MPV 10.5 FL (7.4-10.4); NEUT% 86.1 % (42.2-75.2); PLT 145 X1000 (130-400)
[2017-04-19 05:51] LABS: ALBUMIN 2.8 g/dL (3.5-5.0); CALCIUM 7.6 mg/dL (8.8-10.2); MAGNESIUM 2.9 mg/dL (1.5-2.7); POTASSIUM 4.7 mmol/L (3.5-5.1); TOTAL BILIRUBIN 0.6 mg/dL (0.20-1.00); TOTAL PROTEIN 7.9 g/dL (6.3-8.3)
[2017-04-19 07:14] LABS: BANDS 2 % (0-1); LYMPHS 2 % (21-51); MONO 5 % (1-9)
[2017-04-19] MEDS: VENTOLIN HFA INH PRN (09:00)
[2017-04-19] MEDS: APRESOLINE PO SCH ×3 (09:21→17:00)
[2017-04-19] MEDS: ASPIRIN EC PO SCH (09:41)
[2017-04-19] MEDS: FISH OIL CONCENTRATE PO SCH (09:41)
[2017-04-19] MEDS ORDERED: LIBRIUM PO PRN (10:37)
[2017-04-19] MEDS: ROCEPHIN 1 GM/NS 1 GM/50 ML IVPB IV SCH (10:53)
[2017-04-19] MEDS: NEURONTIN PO SCH ×2 (10:53→20:22)
--- NOTE | 2017-04-19 11:30 | PROGRESS NOTE ---
DATE: 04/19/2017 SUBJECTIVE: Patient is actually much more awake and alert this morning, although he is still confused. PHYSICAL: Temperature 98 degrees, pulse 93, respiratory 24, blood pressure 104/63, saturation 96% on 5 L. General: The patient is lying in bed. He is awake, alert, but easily confused and disoriented. His speech is only understandable part of the time. HEENT: Normocephalic. Neck supple. CV: Regular rate. Chest: Decreased breath sounds but equal. Abdomen soft. Extremities: Moves all extremities. Neurologic: No changes. LABORATORY DATA: Hemoglobin and hematocrit 10 and 30. Sodium 125. BUN 100. Creatinine is elevated to 7.5. ASSESSMENT: 1. Acute hepatorenal syndrome with liver failure. His AST, ALT, alkaline phosphatase are all slightly improved from yesterday which is a tremendous improvement from a few days ago. 2. Njdcc-[id number]-pwgxjly renal failure. The patient continues to worsen his renal function. Unfortunately, he is not a candidate for hemodialysis. 3. Hyponatremia. 4. Supraventricular tachycardia. We will stop his Cardizem at this point. 5. DNR. PLAN: The patient was able to wean off dopamine and dobutamine yesterday. We will wean him off Cardizem today, and we will continue to follow. Certainly, the patient has a very poor prognosis. We will attempt to discuss with nephrology the options of dialysis, although he does not appear to be any type of dialysis candidate at the present time especially given the fact that he has untreatable and unresectable lung cancer. We will continue to discuss with the family. DNR. Comfort care. Total care time: 42 minutes. cc: Tr Crystal MD
[2017-04-19] MEDS: CARDIZEM PO SCH ×2 (13:07→20:27)
--- NOTE | 2017-04-19 13:29 | EKG Report ---
Test Performed on : 04/19/2017 12:32:20 PM Test Reason : rhythm change Blood Pressure : / mmHG Vent. Rate : 122 BPM Atrial Rate : 101 BPM P-R Int : 000 ms QRS Dur : 126 ms QT Int : 390 ms P-R-T Axes : 000 -59 173 degrees QTc Int : 555 ms Atrial fibrillation. with rapid ventricular response. Left axis deviation Left bundle branch block Abnormal ECG When compared with ECG of 18-APR-2017 06:05, (Unconfirmed) Atrial fibrillation. has replaced Sinus rhythm. Vent. rate has increased BY 40 BPM Left bundle branch block is now present Unconfirmed Result
[2017-04-19] MEDS: LOVENOX SUBQ SCH (16:59)
[2017-04-20] MEDS: CARDIZEM PO SCH ×3 (01:29→13:08)
--- NOTE | 2017-04-20 08:58 | EKG Report ---
Test Performed on : 04/19/2017 9:57:55 PM Test Reason : rhythm change Blood Pressure : / mmHG Vent. Rate : 075 BPM Atrial Rate : 075 BPM P-R Int : 158 ms QRS Dur : 118 ms QT Int : 446 ms P-R-T Axes : 057 -51 204 degrees QTc Int : 498 ms Sinus rhythm. with occasional premature ventricular complexes. Possible Left atrial enlargement Left anterior fascicular block ST \T\ T wave abnormality, consider lateral ischemia Prolonged QT Abnormal ECG When compared with ECG of 19-APR-2017 12:32, (Unconfirmed) Sinus rhythm. has replaced Atrial fibrillation. Vent. rate has decreased BY 47 BPM Left bundle branch block is no longer present Confirmed by Larry Brothers MD ([id number]) on 05/12/2017 6:40:51 PM
[2017-04-20] MEDS: APRESOLINE PO SCH ×2 (10:25→13:08)
[2017-04-20] MEDS: ROCEPHIN 1 GM/NS 1 GM/50 ML IVPB IV SCH (10:50)
[2017-04-20] MEDS: FISH OIL CONCENTRATE PO SCH (10:51)
[2017-04-20] MEDS: NEURONTIN PO SCH (10:51)
[2017-04-20] MEDS: ASPIRIN EC PO SCH (10:51)
--- NOTE | 2017-04-20 14:26 | PROGRESS NOTE ---
DATE: 04/20/2017 SUBJECTIVE: Patient unfortunately is not improved. In fact, he slept most of the day yesterday. He is continuing to decline. However when he is awake, he is awake, alert, oriented. PHYSICAL: Vital signs: Temperature 98, pulse 79, respiratory 18-30, BP 87/54 to 97/56, saturation 100% on 2 L. General: Patient is awake currently. He is in no respiratory distress. He is pleasant to talk with. HEENT: Normocephalic, atraumatic, JUANA. Neck: Supple. CV: Regular rate. Chest: Decreased breath sounds but equal. Abdomen: Soft. Extremities: Moves all extremities. No edema. Neurologic: No changes. LABS: No labs today. ASSESSMENT: 1. Acute renal failure. Creatinine has continued to climb, currently BUN is 100, creatinine is 7.5. 2. Hyponatremia secondary to his acute renal failure. 3. Hypochloridemia secondary to renal failure. 4. Hypermagnesemia, hyperphosphatemia. 5. Acute hepatitis improving although slightly secondary to hepatorenal syndrome. 6. Moderate protein calorie malnutrition. 7. Atrial fibrillation currently in sinus rhythm. 8. Do not resuscitate. 9. Cardiogenic shock, improved. PLAN: The patient is weaned off his dobutamine, dopamine and his Cardizem. He currently is on Cardizem p.o. Discussed with the family DNR, hospice care etc. At this point will stopped his Lovenox shots, stop the Rocephin. cc: Tr Crystal MD
--- NOTE | 2017-04-20 14:29 | PROGRESS NOTE ---
DATE: 04/20/2017 ADDENDUM REPORT PROGRESS NOTE ADDENDUM: Forty-five minutes was spent in family consultation regarding Mr. Srivastava's DNR, hospice care and comfort care. Discussed with them that he is in acute renal failure and would require dialysis. His notes that Mr. Srivastava has declined dialysis in the past and stated that he would not on dialysis. Discussed her at this point without dialysis he would be unlikely to be able to survive his acute kidney injury, as well as his acute liver failure. The family agreed at this point to make him DNR, hospice care and comfort care only. We will stop his Rocephin. We will stop his Lovenox. We will changes vitals to daily. We will consult hospice of [facility] and we will move her out to the floor versus home. cc: Tr Crystal MD
[2017-04-20 16:24] VITALS: BP 101/57
--- NOTE | 2017-04-22 05:09 | DISCHARGE SUMMARY ---
ADMISSION DATE: 04/14/2017 DISCHARGE DATE: 04/20/2017 DISCHARGE DIAGNOSES: 1. [id number] to hospice care with [facility]. 2. Acute congestive heart failure. 3. End-stage renal disease in a patient who has declined dialysis repeatedly. 4. Severe coronary artery disease with an ejection fraction of 10-15%. 5. Hyponatremia secondary to renal failure. 6. Hypochloridemia secondary to renal failure. 7. Hypermagnesemia. 8. Acute hepatitis secondary to hepatorenal syndrome, improving. 9. Supraventricular tachycardia. Currently is off Cardizem drip and is on oral Cardizem at this point. 10. Recent history of lung cancer diagnosis. Unable to follow through with treatments. CONSULTATIONS: Cardiology. PROCEDURES: None. BRIEF HOSPITAL COURSE: Patient is an 81-year-old male who was admitted as noted in the HPI. He unfortunately continued to decline. His renal function continued to decline from 3-7. His BUN increased to 80. Mr. Srivastava has said on repeated occasions that he will not go through with dialysis. Therefore, this was not attempted. On multiple different occasions, discussed with the family that he is unlikely to survive this event. He developed hepatorenal syndrome. His AST, ALT, and serum creatinine all increased throughout the hospital stay. On discharge, however, his AST and ALT had slightly improved. He remained awake and alert throughout the hospital stay, although was sleeping more. After multiple family discussions, the family did decide DNR and hospice care. Hospice was consulted and patient will be transferred home with comfort care and [facility]. Forty-five minutes were spent in total care on the date of discharge regarding hospice, family consultation, etc. Discussed with the family that he would not survive without dialysis and as he has repeatedly declined, that there was no other option. In addition to this, he does have known severe systolic congestive heart failure with an ejection fraction of 10-15%, as well as lung cancer which neither of these obviously would be improved with dialysis. The family all agreed between his 2 daughters, his son, and his that comfort care was the best option. cc: Tr Crystal MD
== END 2017-04-20 17:00 | disposition hospice, home (50) ==
LOC: P.ED 09:56 → P.MEDSURG 09:56 → OBSVTOIN 12:38 → P.ICU 15:10
PROVIDERS: ATTEND Family Medicine